=== PATIENT | female | born 1935 | race Caucasian/White ===

== ENCOUNTER 2017-02-26 22:00 | Inpatient (IN) | payer MEDICARE ==
[~2017-02-26] VITALS: Ht 152.4 cm; Wt 48.2 kg
[2017-02-27 01:59] LABS: HEMOGLOBIN 14.5 gm/dl (12.3-15.3); RED BLOOD COUNT 4.72 M/UL (4.00-5.10); WHITE BLOOD COUNT 16.8 K/UL (4.5-11.0)
[2017-02-27 02:48] LABS: BUN/CREATININE RATIO 29 (0-10)
[2017-02-27] MEDS ORDERED: OXYCODONE HCL30 MG PO (15:12)
[2017-02-27] MEDS ORDERED: NEURONTIN 300300 MG PO (15:12)
[2017-02-27] MEDS ORDERED: COREG 12.5MG12.5 MG PO (15:13)
[2017-02-27] MEDS ORDERED: PLAVIX 75 MG TA75 MG PO (15:13)
[2017-02-27] MEDS ORDERED: LISINOPRIL30 MG PO (15:13)
[2017-02-27] MEDS ORDERED: MEGACE SUSP40 MG/ML PO (15:18)
[2017-02-27] MEDS ORDERED: PROAIR HFA8.5 GM INH (15:19)
[2017-02-28 07:31] LABS: HEMOGLOBIN 13.8 gm/dl (12.3-15.3); RED BLOOD COUNT 4.57 M/UL (4.00-5.10); WHITE BLOOD COUNT 16.6 K/UL (4.5-11.0)
[2017-02-28 07:35] LABS: BUN/CREATININE RATIO 38 (0-10)
[2017-03-01 05:51] LABS: HEMOGLOBIN 12.4 gm/dl (12.3-15.3); WHITE BLOOD COUNT 18.3 K/UL (4.5-11.0)
[2017-03-01 05:53] LABS: RED BLOOD COUNT 4.07 M/UL (4.00-5.10)
[2017-03-01 06:07] LABS: BUN/CREATININE RATIO 40 (0-10)
--- NOTE | 2017-03-01 12:59 | NUR ---
SPOKEN WITH DR. JC AND R/T PATIENT CONDITION. BOTH DR. WERE PRESENT AT THAT TIME, REPORTED ABOUT V/S, PATIENT MEDICATIONS AND CURRENT CONDITION.
[2017-03-02 06:11] LABS: HEMOGLOBIN 11.6 gm/dl (12.3-15.3); RED BLOOD COUNT 3.79 M/UL (4.00-5.10); WHITE BLOOD COUNT 21.5 K/UL (4.5-11.0)
[2017-03-02 06:27] LABS: BUN/CREATININE RATIO 60 (0-10)
--- NOTE | 2017-03-02 14:22 | NUR ---
DURING THIS CARE PATIENT WAS SLEEPING AND RESTING COMFORTABLY. PATIENT STARTED WAKING UP AND RESPONDS AT TIMES TO QUESTIONS THEN GO BACK TO SLEEP. PATIENT SAT UP IN CHAIR FOR AT LEAST AN HOUR. PATIENT COMPLAINTS OF PAIN AND WAS ABLE TO RECEIVED ORDER FROM DR. CRAWFORD PATIENT RESTING COMFORTABLY WITH FAMILY MEMBER AT BEDSIDE
[2017-03-03 05:41] LABS: RED BLOOD COUNT 3.65 M/UL (4.00-5.10); WHITE BLOOD COUNT 18.2 K/UL (4.5-11.0)
[2017-03-03 05:57] LABS: BUN/CREATININE RATIO 60 (0-10)
[2017-03-04 06:39] LABS: HEMOGLOBIN 11.3 gm/dl (12.3-15.3); RED BLOOD COUNT 3.68 M/UL (4.00-5.10); WHITE BLOOD COUNT 14.2 K/UL (4.5-11.0)
[2017-03-04 06:59] LABS: BUN/CREATININE RATIO 38 (0-10)
[2017-03-05 06:59] LABS: HEMOGLOBIN 10.5 gm/dl (12.3-15.3); RED BLOOD COUNT 3.46 M/UL (4.00-5.10); WHITE BLOOD COUNT 14.9 K/UL (4.5-11.0)
[2017-03-05 07:14] LABS: BUN/CREATININE RATIO 27 (0-10)
[2017-03-05 15:34] LABS: BUN/CREATININE RATIO 23 (0-10)
[2017-03-06 05:59] LABS: HEMOGLOBIN 11.1 gm/dl (12.3-15.3); RED BLOOD COUNT 3.66 M/UL (4.00-5.10); WHITE BLOOD COUNT 14.9 K/UL (4.5-11.0)
[2017-03-06 06:20] LABS: BUN/CREATININE RATIO 40 (0-10)
[2017-03-07 06:07] LABS: HEMOGLOBIN 10.7 gm/dl (12.3-15.3); RED BLOOD COUNT 3.53 M/UL (4.00-5.10); WHITE BLOOD COUNT 12.9 K/UL (4.5-11.0)
[2017-03-07 06:24] LABS: BUN/CREATININE RATIO 33 (0-10)
[2017-03-08 04:07] LABS: HEMOGLOBIN 10.8 gm/dl (12.3-15.3); RED BLOOD COUNT 3.58 M/UL (4.00-5.10)
[2017-03-08 04:09] LABS: WHITE BLOOD COUNT 16.3 K/UL (4.5-11.0)
[2017-03-08 04:28] LABS: BUN/CREATININE RATIO 45 (0-10)
[2017-03-08 18:19] LABS: BUN/CREATININE RATIO 45 (0-10)
[2017-03-09 05:02] LABS: HEMOGLOBIN 10.3 gm/dl (12.3-15.3); RED BLOOD COUNT 3.42 M/UL (4.00-5.10); WHITE BLOOD COUNT 15.6 K/UL (4.5-11.0)
[2017-03-09 05:19] LABS: BUN/CREATININE RATIO 50 (0-10)
[2017-03-09] MEDS ORDERED: XARELTO10 MG PO (16:26)
[2017-03-09] MEDS ORDERED: COLACE 100MG C100 MG PO (16:29)
[2017-03-09] MEDS ORDERED: NEURONTIN 300300 MG PO (16:29)
[2017-03-09] MEDS ORDERED: ULTRAM50 MG PO (16:30)
[2017-03-09] MEDS ORDERED: ENSURE LIQUID237 ML PO (16:30)
[2017-03-09] MEDS ORDERED: TYLENOL 325MG325 MG PO (17:00)
== END 2017-03-09 21:30 | disposition home health service (06) | DRG 469 ==
LOC: ER1 22:00 → M/S 02-27 12:36 → ZEROF 02-27 12:36 → M/S 02-27 14:26
PROVIDERS: Family Medicine; Internal Medicine; Internal Medicine Infectious Disease; Orthopaedic Surgery; ADMIT Hospitalist
PROC: 0SRS03Z Replacement of Left Hip Joint, Femoral Surface with Ceramic Synthetic Substitute, Open Approach (ICD-10-PCS; principal; 2017-02-28 13:38)
DX: S72.012A Unspecified intracapsular fracture of left femur, initial encounter for closed fracture (principal); G92 Toxic encephalopathy; E46 Unspecified protein-calorie malnutrition; I51.81 Takotsubo syndrome; D62 Acute posthemorrhagic anemia; J98.11 Atelectasis; E87.1 Hypo-osmolality and hyponatremia; W18.30XA Fall on same level, unspecified, initial encounter; Y92.59 Other trade areas as the place of occurrence of the external cause; F17.210 Nicotine dependence, cigarettes, uncomplicated; J44.9 Chronic obstructive pulmonary disease, unspecified; T40.605A Adverse effect of unspecified narcotics, initial encounter; I27.2 Other secondary pulmonary hypertension; Z88.0 Allergy status to penicillin; Z88.2 Allergy status to sulfonamides; E87.5 Hyperkalemia; D47.3 Essential (hemorrhagic) thrombocythemia; Z79.02 Long term (current) use of antithrombotics/antiplatelets; I10 Essential (primary) hypertension
CPT/HCPCS: ECHO; 36415; 36600; 51702; 70450; 71010; 72170; 72192; 73502; 73552; 80048; 80053; 81001; 82140; 82550; 82553; 82803; 82962; 83874; 83880; 84443; 84484; 85025; 85027; 85610; 85730; 86140; 86850; 86900; 86901; 87040; 87077; 87086; 87186; 92526; 92610; 93005; 93306; 94640; 94664; 96365; 96375; 97110; 97116; 97530; 97535; 99285; C1776; J0360; J1650; J1885; J1956; J2270; J2310; J2405; J2795; J7120; P9045